=== PATIENT | female | born 2000 | race Two or more races ===

== ENCOUNTER 2021-06-24 19:05 | Emergency (ER) | payer MEDICAID ==
[~2021-06-24] VITALS: Ht 160 cm; Wt 56.4 kg
[2021-06-24 19:24] VITALS: BP 110/68
[2021-06-24] MEDS ORDERED: PRED20TA PO (19:46)
[2021-06-24] MEDS ORDERED: AMOX-422 PO (19:46)
[2021-06-24 20:16] LABS: MONOTEST NEGATIVE (Neg)
== END 2021-06-24 20:00 | disposition home or self-care (01) ==
LOC: ER 19:05
DX: J02.9 Acute pharyngitis, unspecified (principal); Z79.2 Long term (current) use of antibiotics
CPT/HCPCS: 36415; 86308; 87081; 87880; 99283

== ENCOUNTER 2021-12-16 09:04 | Emergency (ER) | payer MEDICAID ==
[~2021-12-16] VITALS: Ht 160 cm; Wt 61.4 kg
[2021-12-16 09:25] VITALS: BP 112/81
[2021-12-16] MEDS ORDERED: dexamethasone sod phosphate 10mg/ml inj PO STA (11:26)
[2021-12-16 12:18] LABS: MONOTEST NEGATIVE (Neg)
[2021-12-16] MEDS ORDERED: LIDO20SO16 PO (12:53)
[2021-12-16] MEDS ORDERED: METH4TAB3 PO (12:53)
[2021-12-16] MEDS ORDERED: KETO10TA2 PO (12:53)
== END 2021-12-16 13:06 | disposition home or self-care (01) ==
LOC: ER 09:05
DX: J02.9 Acute pharyngitis, unspecified (principal)
CPT/HCPCS: 36415; 86308; 87081; 87880; 99283; J1100

== ENCOUNTER 2022-03-11 17:18 | Emergency (ER) | payer MEDICAID ==
[~2022-03-11] VITALS: Ht 160 cm; Wt 56.4 kg
[~2022-03-11 17:18] MED LIST: KETO10TA2 PO; LIDO20SO16 PO; METH4TAB3 PO
[2022-03-11 17:31] VITALS: BP 108/61
== END 2022-03-11 18:45 | disposition home or self-care (01) ==
LOC: ER 17:18
DX: J02.9 Acute pharyngitis, unspecified (principal); Z79.899 Other long term (current) drug therapy
CPT/HCPCS: 87081; 87880; 99283